=== PATIENT | female | born 1990 | race Caucasian/White ===

== ENCOUNTER 2017-08-29 15:25 | Emergency (ER) | payer OTHER ==
[2017-08-29 15:25] VITALS: BMI 32.5
[2017-08-29 15:55] VITALS: TEMP 97.9
--- NOTE | 2017-08-29 17:56 | C.PDOC ---
History Of Present Illness Patient, whose history includes herniated discs, reports gradual onset of lower back pain which radiates down the leg. Patient reports that the pain is worsened with movement. Denies numbness, weakness, bowel/bladder incontinence. Time Seen by Provider: 08/29/17 17:35 Chief Complaint (Nursing): Back Pain History Per: Patient History/Exam Limitations: no limitations Current Symptoms Are (Timing): Still Present Quality Of Discomfort: "Pain" Previous Symptoms: Back Pain Associated Symptoms: denies: Incontinence, New Weakness, New Numbness Exacerbating Factor(s): Movement Additional History Per: Patient Past Medical History Reviewed: Historical Data, Nursing Documentation, Vital Signs Vital Signs: Last Vital Signs Temp 97.9 F 08/29/17 15:48 Pulse 77 08/29/17 18:46 Resp 18 08/29/17 18:46 BP 114/75 08/29/17 18:46 Pulse Ox 100 08/29/17 19:39 - Medical History PMH: Anemia (2007, 2011 due to ), Fractures (right hand 1997), Kidney Stones (passed naturally 1998) Surgical History: No Surg Hx - [facility] Procedures BILAT ENDOS OCC TUBE NEC (10/07/14) OTH LAPAROSCOP LOCAL EXCIS/DESTRUCT OVARY (10/07/14) Family History: States: Unknown Family Hx - Social History Hx Alcohol Use: Yes Hx Substance Use: No - Immunization History Hx Tetanus Toxoid Vaccination: No Hx Influenza Vaccination: No Hx Pneumococcal Vaccination: No Review Of Systems Genitourinary: Negative for: Incontinence Musculoskeletal: Positive for: Back Pain, Leg Pain Neurological: Negative for: Weakness, Numbness Physical Exam - Physical Exam Appears: Non-toxic, No Acute Distress Skin: Normal Color, Warm, Dry, No Rash Head: Atraumatic, Normacephalic Eye(s): bilateral: Normal Inspection Oral Mucosa: Moist Neck: Normal ROM, Supple Chest: Symmetrical, No Deformity, No Tenderness Cardiovascular: Rhythm Regular, No Murmur Respiratory: Normal Breath Sounds, No Rales, No Rhonchi, No Wheezing Gastrointestinal/Abdominal: Soft, No Tenderness Back: No CVA Tenderness, No Vertebral Tenderness, Paraspinal Tenderness (lumbar ) Extremity: Normal ROM, No Tenderness, Capillary Refill (less than 2 seconds ), No Deformity, No Swelling Neurological/Psych: Oriented x3, Normal Speech, Normal Cognition, Normal Motor, Normal Sensation Gait: Steady ED Course And Treatment O2 Sat by Pulse Oximetry: 100 (on RA) Pulse Ox Interpretation: Normal - Other Rad lumbar spine XR X-Ray: Interpreted by Me, Viewed By Me, Read By Radiologist Interpretation: PROCEDURE: Radiographs of the Lumbar Spine. HISTORY: back pain. COMPARISON: None available. FINDINGS: BONES: Alignment appears satisfactory. No listhesis. No acute displaced fracture identified. DISC SPACES : Unremarkable. OTHER FINDINGS: None. IMPRESSION: No acute displaced fracture or subluxation identified. Medical Decision Making Medical Decision Making: Progress: LS Spine AP/LAT ordered and reviewed. Decadron IM, Toradol IM, and Valium PO administered. On re-exam, the patient reports improvement of symptoms, Abdomen is soft, non- tender and tolerating PO well. Lungs are CTA, heart is RRR. Ambulatory in the steady gait. Follow up with the medical doctor within 1-2 days. Return if worsened. Disposition - Disposition Referrals: Elver Marino MD [Non-Staff] - Disposition: HOME/ ROUTINE Disposition Time: 19:35 Condition: STABLE Additional Instructions: Follow up with the medical doctor within 1-2 days. Return if worsened. Prescriptions: Cyclobenzaprine [Cyclobenzaprine HCl] 10 mg PO BID #14 tab Naproxen [Naprosyn] 500 mg PO BID #20 tab predniSONE [Prednisone] 10 mg PO BID #10 tab Instructions: Acute Low Back Pain (ED) Forms: [facility] (Korean), Work Excuse - Clinical Impression Clinical Impression: Low back pain - PA / REGIONAL EDUCATION COORDINATOR / Resident Statement MD/DO has reviewed & agrees with the documentation as recorded. - Scribe Statement The provider has reviewed the documentation as recorded by the Scribe (Angeline Rizzo) All medical record entries made by the Scribe were at my direction and personally dictated by me. I have reviewed the chart and agree that the record accurately reflects my personal performance of the history, physical exam, medical decision making, and the department course for this patient. I have also personally directed, reviewed, and agree with the discharge instructions and disposition.
[2017-08-29] MEDS ORDERED: Dexamethasone 4 mg/1 ml IM STA (17:57)
[2017-08-29] MEDS ORDERED: Dexamethasone 4 mg/1 ml ONE (18:06)
[2017-08-29 18:47] VITALS: BP 114/75; PULSE 77; RESP 18
--- NOTE | 2017-08-29 19:09 | RAD ---
PROCEDURE: Radiographs of the Lumbar Spine. HISTORY: back pain COMPARISON: None available. FINDINGS: BONES: Alignment appears satisfactory. No listhesis. No acute displaced fracture identified. DISC SPACES: Unremarkable. OTHER FINDINGS: None. IMPRESSION: No acute displaced fracture or subluxation identified.
[2017-08-29 19:32] VITALS: O2SAT 100
== END 2017-08-29 19:42 | disposition home or self-care (01) ==
LOC: C.ER 15:25
DX: M54.5 Low back pain (principal)
CPT/HCPCS: 72100; 96372; 99283; J1100; J1885